=== PATIENT | male | born 1975 | race Caucasian/White ===

== ENCOUNTER 2017-01-15 11:14 | Outpatient (CLI) | payer OTHER ==
[2015-11-26 15:18] VITALS: BP 135/89
[2017-01-15 11:54] LABS: eGFR (African) > 60; eGFR (Non-African) > 60
== END 2017-01-15 11:15 ==
LOC: LAB 11:14
PROVIDERS: ATTEND Family Medicine
DX: I10 Essential (primary) hypertension (principal)
CPT/HCPCS: 36415; 80048

== ENCOUNTER 2017-07-15 13:29 | Outpatient (CLI) | payer OTHER ==
[2015-11-26 15:18] VITALS: BP 135/89
[2017-07-15 13:44] LABS: BASOPHILS % 0.7 (0.0-1.5); EOSINOPHILS % 2.3 % (0.0-6.8); MEAN CORPUSCULAR HEMOGLOBIN 30.2 pg (28.0-34.0); MONOCYTES % 4.6 % (0.0-11.0); NEUTROPHILS # 9.1 # k/uL (1.4-7.7)
--- NOTE | 2017-07-15 16:35 | Diagnostic Imaging Report ---
[place]~ [facility] [id number] [facility] [address] [address] ~ ~ ~ ~ Report Submission Date: Jul 15, 2017 2:13:40 PM CDT Patient ~ Study Name: SANDRA AMOR ~ Date: Jul 15, 2017 1:38:54 PM CDT ~ Modality Type: CR Gender: M ~ Description: LOWER EXTREMITY : 77 ~ Institution: [facility] Physician: NEFTALI [place]GL[place] ~ ~ ~ ~ Examination: Plain film foot ~ History:~ Discomfort Findings: 3 views of the foot demonstrates normal cortical margins. No fracture or dislocation. ~Posterior calcaneal spur. ~No soft tissue swelling. No joint effusion. Impression: No acute osseous process. ~ Electronically signed on Jul 15, 2017 2:13:40 PM CDT by: Jhon WHEELER
== END 2017-07-15 13:30 ==
LOC: RAD 13:29
PROVIDERS: ATTEND Physician Assistant
DX: M79.671 Pain in right foot (principal)
CPT/HCPCS: 36415; 73630; 84550; 85025

== ENCOUNTER 2018-09-05 16:57 | Emergency (ER) | payer OTHER ==
--- NOTE | 2018-09-05 17:02 | ED Physician Documentation ---
General Adult - HISTORIAN Historian: patient - HPI Stated Complaint: lac to left hand cutting a deer Chief Complaint: Laceration/Recheck/Suture Onset: minutes (30) Timing: still present Further Comments: yes (He reports cutting a deer and cut his finger. The knife was dirty - he has full sensation no other complaints. He is UTD on tetanus) - ROS CONST: no problems EYES/ENT: none CVS/RESP: none MS/SKIN/LYMPH: other (laceration on left hand ring and first finger ) - PAST HX Past History: none Other History: none Surgeries/Procedures: other (cut his finger off 3 years ago ) Immunizations: UTD Allergies/Adverse Reactions: Allergies Allergy/AdvReac Type Severity Reaction Status Date / Time No Known Drug Allergies Allergy Unverified 01/01/13 14:25 - SOCIAL HX Smoking History: non-smoker Alcohol Use: none Drug Use: none - FAMILY HX Family History: No - VITAL SIGNS Vital Signs: Vital Signs Temp Pulse Resp BP Pulse Ox 86 18 134/96 99 09/05/18 17:22 09/05/18 17:22 09/05/18 17:22 09/05/18 17:22 - REVIEWED ASSESSMENTS Nursing Assessment Reviewed: Yes Vitals Reviewed: Yes Procedures Wound Repaired With: Dermabond (and steri strip without incident ) ED Results Lab/Radiology - Orders Orders: ED Orders Category Date Time Status Skin Adhesive NOW Care 09/05/18 17:10 Ordered General Adult Physical Exam - PHYSICAL EXAM GENERAL APPEARANCE: no distress EENT: eye inspection normal NECK: normal inspection RESPIRATORY: no resp distress, chest non-tender, breath sounds normal CVS: reg rate & rhythm, heart sounds normal ABDOMEN: soft SKIN: warm/dry, other (middle finger left hand kuo shape skin flap and on ring finger small cut with skin flap that is no longer attached ) EXTREMITIES: non-tender NEURO: oriented X3 Discharge Clincal Impression: Laceration of left hand Qualifiers: Encounter type: initial encounter Foreign body presence: without foreign body Qualified Code(s): S61.412A - Laceration without foreign body of left hand, initial encounter Referrals: Heidi Christina MD [Primary Care Provider] - 2 Days Comments: 1. Keep area clean and dry 2. Bactrim DS take 1 by mouth twice daily x 10 days 3. See PCP in 2-4 days for any concerns 4. Return to ER for any concerns Condition: Stable Disposition: 01 HOME, SELF-CARE Decision to Admit: NO Date of Decison to Admit: 09/05/18 Decision Time: 17:17
[2018-09-05 17:25] VITALS: BP 134/96
== END 2018-09-05 17:22 | disposition home or self-care (01) ==
LOC: ED 16:57
DX: S61.412A Laceration without foreign body of left hand, initial encounter (principal); W55.89XA Other contact with other mammals, initial encounter; Y28.8XXA Contact with other sharp object, undetermined intent, initial encounter; Y92.9 Unspecified place or not applicable
CPT/HCPCS: 12001; 99282

== ENCOUNTER 2018-10-30 08:19 | Outpatient (CLI) | payer OTHER ==
[2018-10-30 09:04] LABS: eGFR (Non-African) > 60
== END 2018-10-30 09:00 ==
LOC: LAB 08:19
PROVIDERS: ATTEND Nurse Practitioner Family
DX: R73.9 Hyperglycemia, unspecified (principal); I10 Essential (primary) hypertension
CPT/HCPCS: 36415; 80053; 80061; 83036

== ENCOUNTER 2019-11-04 10:39 | Outpatient (CLI) | payer OTHER ==
[2019-11-04 11:42] LABS: APPEARANCE,URINE CLEAR (CLEAR); COLOR,URINE YELLOW (YELLOW)
[2019-11-04 11:43] LABS: OCCULT BLOOD,URINE NEGATIVE (NEGATIVE); PH URINE 5.5 (5.0 - 8.0); UROBILINOGEN URINE 0.2 Eu (0.2-1.0)
[2019-11-04 12:01] LABS: HDL 36 mg/dL (>40); eGFR (Non-African) > 60
== END 2019-11-04 10:44 ==
LOC: LAB 10:39
PROVIDERS: ATTEND Family Medicine
DX: Z13.220 Encounter for screening for lipoid disorders (principal); Z13.1 Encounter for screening for diabetes mellitus; Z13.0 Encounter for screening for diseases of the blood and blood-forming organs and certain disorders involving the immune mechanism
CPT/HCPCS: 36415; 80053; 80061; 81002; 85027